=== PATIENT | male | born 1975 | race Caucasian/White ===

== ENCOUNTER 2017-02-06 16:59 | Emergency (ER) | payer SELFPAY ==
[~2017-02-06] VITALS: Ht 170.2 cm; Wt 74.8 kg
[2017-02-06 18:49] LABS: BASO % 0 % (0-3); EOS % 1 % (0-3); HEMATOCRIT 44.2 % (39.0-53.0); HEMOGLOBIN 15.1 g/dL (13.0-17.5); LYMPH # 3.4 x10^3/uL (1.0-4.8); LYMPH % 35 % (24-48); MEAN CORPUSCULAR HEMOGLOBIN 31 pg (25-35); MEAN CORPUSCULAR HGB CONC 34 g/dL (31-37); MEAN CORPUSCULAR VOLUME 90 fL (79-100); MONO % 9 % (0-9); NEUT % 54 % (31-73); PLATELET COUNT 302 x10^3/uL (140-400); RED BLOOD COUNT 4.91 x10^6/uL (4.30-5.70); RED CELL DISTRIBUTION WIDTH 12.8 % (11.5-14.5); WHITE BLOOD COUNT 9.9 x10^3/uL (4.0-11.0)
[2017-02-06 18:50] LABS: BILIRUBIN,URINE NEGATIVE (NEG); GLUCOSE,URINE NEGATIVE (NEG); NITRITE,URINE NEGATIVE (NEG); PH,URINE 7.5; PROTEIN,URINE NEGATIVE (NEG-TRACE)
--- NOTE | 2017-02-06 18:54 | PHYS DOC ---
Past Medical History Past Medical History: Hypertension Past Surgical History: Tonsillectomy Additional Information: 1 ppd Alcohol Use: None Drug Use: None Adult General Chief Complaint Chief Complaint: ABDOMINAL PAIN HPI HPI Patient is a 41 year old male who presents with multiple complaints patient states that he has been having vague but persistent abdominal pain over the past month. Patient states that the pain has been located more so in his left lower quadrant but states that he has noticed pain traveling across his lower abdomen over the past week. Patient states that he has not noticed any blood in his stools and has not had any problems with diarrhea over the past week. Patient states that he did have diarrhea 2 weeks ago which resolved. Patient has had nausea but no vomiting. Patient denies any significant past medical history. Patient states that today he was feeling lightheaded and experiencing generalized weakness which is why he came in today. Patient notes associated increased frequency of urinating. Patient has not taken any medications to help with his symptoms at this time. Review of Systems Review of Systems Constitutional: Lightheadedness, generalized weakness, Denies fever or chills [] Eyes: Denies change in visual acuity, redness, or eye pain [] HENT: Denies nasal congestion or sore throat [] Respiratory: Denies cough or shortness of breath [] Cardiovascular: Denies chest pain or edema [] GI: Abdominal pain, nausea, denies vomiting, bloody stools or diarrhea [] : Increased urinary frequency, Denies dysuria or hematuria [] Musculoskeletal: Denies back pain or joint pain [] Integument: Denies rash or skin lesions [] Neurologic: Denies headache, focal weakness or sensory changes [] Current Medications Current Medications Current Medications Medications (Trade) Dose Ordered Sig/Nafisa Start Time Stop Time Status Last Admin Dose Admin Dicyclomine HCl (Bentyl) 10 mg 1X ONCE 02/06/17 19:00 02/06/17 19:01 DC 02/06/17 18:55 10 MG Famotidine (Pepcid) 20 mg 1X ONCE 02/06/17 19:00 02/06/17 19:01 DC 02/06/17 18:55 20 MG Ondansetron HCl (Zofran) 4 mg 1X ONCE 02/06/17 19:00 02/06/17 19:01 DC 02/06/17 18:55 4 MG Sodium Chloride (Iv Sodium Chloride 0.9% 1000ml Bag) 1,000 ml @ 1,000 mls/hr Q1H 02/06/17 19:00 02/06/17 19:59 DC 02/06/17 18:55 1,000 MLS/HR Allergies Allergies Allergies Coded Allergies Type Severity Reaction Last Updated Verified Penicillins Allergy Intermediate "my father is allergic to it" 02/06/17 Yes Physical Exam Physical Exam Constitutional: Well developed, well nourished, no acute distress, non-toxic appearance. [] HENT: Normocephalic, atraumatic, bilateral external ears normal, oropharynx moist, no oral exudates, nose normal. [] Eyes: PERRLA, EOMI, conjunctiva normal, no discharge. [] Neck: Normal range of motion, no tenderness, supple, no stridor. [] Cardiovascular:Heart rate regular rhythm, no murmur [] Lungs & Thorax: Bilateral breath sounds clear to auscultation [] Abdomen: Bowel sounds normal, soft, no tenderness, no masses, no pulsatile masses. [] Skin: Warm, dry, no erythema, no rash. [] Back: No tenderness, no CVA tenderness. [] Extremities: No tenderness, no cyanosis, no clubbing, ROM intact, no edema. [] Neurologic: Alert and oriented X 3, normal motor function, normal sensory function, no focal deficits noted. [] Current Patient Data Vital Signs Vital Signs Date Time Temp Pulse Resp B/P Pulse Ox O2 Delivery O2 Flow Rate FiO2 02/06/17 19:18 59 19 116/68 98 Room Air 02/06/17 17:12 97.9 97.9 Lab Values Laboratory Tests Test 02/06/17 18:15 White Blood Count 9.9x10^3/uL (4.0-11.0) Red Blood Count 4.91x10^6/uL (4.30-5.70) Hemoglobin 15.1g/dL (13.0-17.5) Hematocrit 44.2% (39.0-53.0) Mean Corpuscular Volume 90fL (79-100) Mean Corpuscular Hemoglobin 31pg (25-35) Mean Corpuscular Hemoglobin Concent 34g/dL (31-37) Red Cell Distribution Width 12.8% (11.5-14.5) Platelet Count 302x10^3/uL (140-400) Neutrophils (%) (Auto) 54% (31-73) Lymphocytes (%) (Auto) 35% (24-48) Monocytes (%) (Auto) 9% (0-9) Eosinophils (%) (Auto) 1% (0-3) Basophils (%) (Auto) 0% (0-3) Neutrophils # (Auto) 5.4x10^3uL (1.8-7.7) Lymphocytes # (Auto) 3.4x10^3/uL (1.0-4.8) Monocytes # (Auto) 0.9x10^3/uL (0.0-1.1) Eosinophils # (Auto) 0.1x10^3/uL (0.0-0.7) Basophils # (Auto) 0.0x10^3/uL (0.0-0.2) Urine Collection Type Unknown Urine Color Yellow Urine Clarity Clear Urine pH 7.5 Urine Specific [place] 1.010 Urine Protein Negativemg/dL (NEG-TRACE) Urine Glucose (UA) Negativemg/dL (NEG) Urine Ketones (Stick) Negativemg/dL (NEG) Urine Blood Negative (NEG) Urine Nitrite Negative (NEG) Urine Bilirubin Negative (NEG) Urine Urobilinogen Dipstick 1.0mg/dL (0.2 mg/dL) Urine Leukocyte Esterase Negative (NEG) Urine RBC 0/HPF (0-2) Urine WBC Occ/HPF (0-4) Urine Squamous Epithelial Cells Few/LPF Urine Bacteria Few/HPF (0-FEW) Sodium Level 135mmol/L (136-145) L Potassium Level 3.6mmol/L (3.5-5.1) Chloride Level 98mmol/L (98-107) Carbon Dioxide Level 28mmol/L (21-32) Anion Gap 9 (6-14) Blood Urea Nitrogen 11mg/dL (8-26) Creatinine 0.9mg/dL (0.7-1.3) Estimated GFR (Cockcroft-Gault) 93.0 BUN/Creatinine Ratio 12 (6-20) Glucose Level 84mg/dL (70-99) Calcium Level 9.2mg/dL (8.5-10.1) Total Bilirubin 0.3mg/dL (0.2-1.0) Aspartate Amino Transferase (AST) 18U/L (15-37) Alanine Aminotransferase (ALT) 33U/L (16-63) Alkaline Phosphatase 56U/L (46-116) Total Protein 7.4g/dL (6.4-8.2) Albumin 4.0g/dL (3.4-5.0) Albumin/Globulin Ratio 1.2 (1.0-1.7) Lipase 246U/L (73-393) Laboratory Tests 02/06/17 18:15 Laboratory Tests 02/06/17 18:15 EKG EKG Interpreted by me: Heart rate 61, sinus rhythm, normal intervals, normal axis, no acute ST/T-wave abnormalities present [] Radiology/Procedures Radiology/Procedures 3 view acute abdominal series interpreted by me: No infiltrate, no effusions, normal cardiac silhouette, no free air under the diaphragm, nonobstructive bowel gas pattern [] Course & Med Decision Making Course & Med Decision Making Pertinent Labs and Imaging studies reviewed. (See chart for details) Patient was given IV fluids, Bentyl, Zofran, and Pepcid. On reevaluation, patient states his symptoms have improved at this time. The patient's emergency department workup is unremarkable for any significant pathology at this time. Due to continued suspicion for possible GI problems, the patient will be referred to Dr. Noble of gastroenterology for follow-up in one to 2 weeks. Advised patient follow-up with his primary doctor in the next 3-5 days and return to the emergency department for any worsening symptoms. Patient voiced understanding and in agreement with treatment plan. Dragon Disclaimer Dragon Disclaimer This electronic medical record was generated, in whole or in part, using a voice recognition dictation system. Departure Departure Impression: Primary Impression: Abdominal pain Additional Impression: Fatigue Disposition: 01 HOME, SELF-CARE Condition: IMPROVED Referrals: NO PCP (PCP) CLARA NOBLE MD Patient Instructions: Abdominal Pain (Nonspecific) Additional Instructions: Follow-up with your primary doctor in 3-5 days and follow-up with Dr. Noble of gastroenterology in 1-2 weeks. Return to the emergency department for any worsening symptoms. Scripts Famotidine (Pepcid)20 Mg [id number] Mg PO BID #30 TAB Prov:MITCH YARBROUGH MD 02/06/17 Dicyclomine Hcl (Bentyl)10 Mg Capsule1 Cap PO TID #90 CAP Ref 0 Prov:MITCH YARBROUGH MD 02/06/17 Ondansetron (Zofran Odt)4 Mg Tab.rapdis1 Tab SL Q8HRS PRN NAUSEA/VOMITING #15 TAB Prov:MITCH YARBROUGH MD 02/06/17 Problem Qualifiers Primary Impression: Abdominal pain Abdominal location: lower abdomen, unspecified Qualified Code: R10.30 - Lower abdominal pain, unspecified Additional Impression: Fatigue Fatigue type: unspecified Qualified Code: R53.83 - Other fatigue MITCH YARBROUGH MD Feb 06, 2017 18:54
[2017-02-06] MEDS ORDERED: ONDANSETRON PF 4 MG/2 ML VIAL. IV ONE (19:00)
[2017-02-06] MEDS ORDERED: IV NORMAL SALINE 1000ML BAG 1,000 ML IV SCH (19:00)
[2017-02-06] MEDS ORDERED: FAMOTIDINE 20 MG/2 ML VIAL IVP ONE (19:00)
[2017-02-06] MEDS ORDERED: DICYCLOMINE 20 MG/2 ML AMPUL. IM ONE (19:00)
[2017-02-06 19:05] LABS: CALCIUM 9.2 mg/dL (8.5-10.1); CREATININE 0.9 mg/dL (0.7-1.3); POTASSIUM 3.6 mmol/L (3.5-5.1)
[2017-02-06 19:10] LABS: ALBUMIN/GLOBULIN RATIO 1.2 (1.0-1.7); TOTAL BILIRUBIN 0.3 mg/dL (0.2-1.0); TOTAL PROTEIN 7.4 g/dL (6.4-8.2)
[2017-02-06 19:14] LABS: BACTERIA,URINE FEW /HPF (0-FEW); RBC,URINE 0 /HPF (0-2); SQUAMOUS EPITHELIAL CELL,UR FEW /LPF; WBC,URINE OCC /HPF (0-4)
[2017-02-06 20:01] VITALS: BP 110/74
[2017-02-06] MEDS ORDERED: FAMO-63 PO (20:26)
[2017-02-06] MEDS ORDERED: ONDA4TAB10 SL (20:26)
[2017-02-06] MEDS ORDERED: DICY10CA53 PO (20:26)
--- NOTE | 2017-02-07 06:43 | EKG ---
[facility] [address] [place] [address] Test Date: 2017-02-06 Test Time: 18:52:12 Pat Name: DONG HERNANDEZ Department: Room: Gender: M [employer]: : 1975 Requested By: MITCH YARBRUOGH Order Number: [id number] Reading MD: Measurements Intervals [place] Rate: 61 P: 51 KS: 214 QRS: 34 QRSD: 100 T: 28 QT: 388 QTc: 396 Interpretive Statements SINUS RHYTHM NO SPECIFIC ECG ABNORMALITIES RI6.01 No previous ECG available for comparison
--- NOTE | 2017-02-07 08:37 | RAD ---
Acute abdomen series with chest, 3 views, 02/06/2017: History: Pain Gas is present in large and small bowel in a nonspecific pattern. No free air is seen in the abdomen. There is no evidence of organomegaly. Calcified splenic granulomata are present. Lower pelvic calcifications are probably phleboliths. The heart size is normal. The lungs are clear. There is no evidence of pleural fluid. IMPRESSION: No acute abdominal abnormality is detected.
== END 2017-02-06 20:40 | disposition home or self-care (01) ==
LOC: ER 16:59
DX: R10.32 Left lower quadrant pain (principal); R53.83 Other fatigue; I10 Essential (primary) hypertension; F17.200 Nicotine dependence, unspecified, uncomplicated; Z88.0 Allergy status to penicillin
CPT/HCPCS: 36415; 74022; 80053; 81001; 83690; 85027; 93005; 96361; 96372; 96374; 96375; 99285; J0500; J2405; J7030; S0028

== ENCOUNTER 2017-02-24 19:35 | Emergency (ER) | payer OTHER ==
[~2017-02-24] VITALS: Ht 170.2 cm; Wt 70.3 kg
[~2017-02-24 19:35] MED LIST: DICY10CA53 PO; FAMO-63 PO; ONDA4TAB10 SL
[2017-02-24] MEDS ORDERED: KETOROLAC TROMETHAMINE 30 MG/ML INJ. IV ONE (20:00)
[2017-02-24] MEDS ORDERED: DEXAMETHASONE SOD PHOS 20 MG/5 ML VIAL. IV ONE (20:00)
[2017-02-24 20:10] LABS: BASO # 0.1 x10^3/uL (0.0-0.2); BASO % 1 % (0-3); EOS % 2 % (0-3); HEMATOCRIT 41.6 % (39.0-53.0); HEMOGLOBIN 14.8 g/dL (13.0-17.5); LYMPH # 3.9 x10^3/uL (1.0-4.8); LYMPH % 34 % (24-48); MEAN CORPUSCULAR HEMOGLOBIN 31 pg (25-35); MEAN CORPUSCULAR HGB CONC 36 g/dL (31-37); MEAN CORPUSCULAR VOLUME 88 fL (79-100); MONO % 7 % (0-9); NEUT % 57 % (31-73); PLATELET COUNT 341 x10^3/uL (140-400); RED BLOOD COUNT 4.73 x10^6/uL (4.30-5.70); RED CELL DISTRIBUTION WIDTH 12.9 % (11.5-14.5); WHITE BLOOD COUNT 11.5 x10^3/uL (4.0-11.0)
[2017-02-24 20:18] LABS: CALCIUM 9.1 mg/dL (8.5-10.1); CREATININE 0.9 mg/dL (0.7-1.3); POTASSIUM 3.5 mmol/L (3.5-5.1)
--- NOTE | 2017-02-24 20:20 | RAD ---
PROCEDURE CT head without intravenous contrast. HISTORY Bilateral facial pain and numbness. TECHNIQUE Axial images are obtained of the head from the skull base through the vertex without IV contrast Exposure: One or more of the following individualized dose reduction techniques were utilized for this examination: 1. Automated exposure control. 2. Adjustment of the mA and/or kV according to patient size. 3. Use of iterative reconstruction technique. COMPARISON None. FINDINGS The ventricles are appropriate in size, shape, and location for the patient's age.No obvious intracranial mass, mass-effect, midline shift, hemorrhage or obvious acute infarction is identified.Basilar cisterns are patent. Bone windows demonstrate no acute calvarial abnormality.The visualized paranasal sinuses appear clear. IMPRESSION No acute intracranial process. Please note that CT can be relatively insensitive to acute ischemic infarction for up to 24 hours after symptom onset. Electronically signed by: Steve Alonso MD (Feb 24, 2017 20:18:29)
[2017-02-24 20:23] LABS: ALBUMIN 4.3 g/dL (3.4-5.0); ALBUMIN/GLOBULIN RATIO 1.3 (1.0-1.7); TOTAL BILIRUBIN 0.4 mg/dL (0.2-1.0); TOTAL PROTEIN 7.5 g/dL (6.4-8.2)
--- NOTE | 2017-02-24 20:30 | PHYS DOC ---
Past Medical History Past Medical History: Hypertension Past Surgical History: Tonsillectomy Alcohol Use: None Drug Use: None Adult General Chief Complaint Chief Complaint: FACE PROBLEM HPI HPI Patient is a 41 year old female presenting to the emergency department for nonspecific symptoms of facial pain and facial paresthesias generalized not feeling right. Patient's pain and paresthesias is bilateral and has been going on for several days. He says he feels a pressure in his head and just feels that he is off. He denies any pain other than his face. He says that he has some problems focusing on objects that are far in the distance but otherwise denies any other vision problems. He denies any difficulty speaking or ambulating and no unilateral weakness numbness or tingling. He also denies any chest pain shortness of breath diaphoresis nausea vomiting. He is in no obvious distress with normal vital signs. Review of Systems Review of Systems Constitutional: Denies fever or chills [] Eyes: Denies change in visual acuity, redness, or eye pain [] HENT: + nasal congestion. No sore throat [] Respiratory: Denies cough or shortness of breath [] Cardiovascular: No CP GI: Denies abdominal pain, nausea, vomiting, bloody stools or diarrhea [] : Denies dysuria or hematuria [] Musculoskeletal: Denies back pain or joint pain [] Integument: Denies rash or skin lesions [] Neurologic: Denies headache, focal weakness. + sensory changes [] Current Medications Current Medications Current Medications Medications (Trade) Dose Ordered Sig/Nafisa Start Time Stop Time Status Last Admin Dose Admin Dexamethasone Sodium Phosphate (Decadron) 10 mg 1X ONCE 02/24/17 20:00 02/24/17 20:01 DC 02/24/17 20:01 10 MG Ketorolac Tromethamine (Toradol) 30 mg 1X ONCE 02/24/17 20:00 02/24/17 20:01 DC 02/24/17 19:59 30 MG Allergies Allergies Allergies Coded Allergies Type Severity Reaction Last Updated Verified Penicillins Allergy Intermediate "my father is allergic to it" 02/06/17 Yes Physical Exam Physical Exam Constitutional: Well developed, well nourished, no acute distress, non-toxic appearance. [] HENT: Face with tenderness to palpation of his maxilla and TMJ area. Eyes: PERRLA, EOMI, conjunctiva normal, no discharge. [] Neck: Normal range of motion, no tenderness, supple, no stridor. [] Cardiovascular:Heart rate regular rhythm, no murmur [] Lungs & Thorax: Bilateral breath sounds clear to auscultation [] Abdomen: Bowel sounds normal, soft, no tenderness, no masses, no pulsatile masses. [] Skin: Warm, dry, no erythema, no rash. [] Back: No tenderness, no CVA tenderness. [] Extremities: No tenderness, no cyanosis, no clubbing, ROM intact, no edema. [] Neurologic: Alert and oriented X 3, normal motor function. Cranial nerves II through XII intact. Current Patient Data Vital Signs Vital Signs Date Time Temp Pulse Resp B/P Pulse Ox O2 Delivery O2 Flow Rate FiO2 02/24/17 19:44 97.8 74 18 138/80 100 Room Air 97.8 Lab Values Laboratory Tests Test 02/24/17 19:51 White Blood Count 11.5x10^3/uL (4.0-11.0) H Red Blood Count 4.73x10^6/uL (4.30-5.70) Hemoglobin 14.8g/dL (13.0-17.5) Hematocrit 41.6% (39.0-53.0) Mean Corpuscular Volume 88fL (79-100) Mean Corpuscular Hemoglobin 31pg (25-35) Mean Corpuscular Hemoglobin Concent 36g/dL (31-37) Red Cell Distribution Width 12.9% (11.5-14.5) Platelet Count 341x10^3/uL (140-400) Neutrophils (%) (Auto) 57% (31-73) Lymphocytes (%) (Auto) 34% (24-48) Monocytes (%) (Auto) 7% (0-9) Eosinophils (%) (Auto) 2% (0-3) Basophils (%) (Auto) 1% (0-3) Neutrophils # (Auto) 6.5x10^3uL (1.8-7.7) Lymphocytes # (Auto) 3.9x10^3/uL (1.0-4.8) Monocytes # (Auto) 0.8x10^3/uL (0.0-1.1) Eosinophils # (Auto) 0.2x10^3/uL (0.0-0.7) Basophils # (Auto) 0.1x10^3/uL (0.0-0.2) Sodium Level 135mmol/L (136-145) L Potassium Level 3.5mmol/L (3.5-5.1) Chloride Level 98mmol/L (98-107) Carbon Dioxide Level 29mmol/L (21-32) Anion Gap 8 (6-14) Blood Urea Nitrogen 12mg/dL (8-26) Creatinine 0.9mg/dL (0.7-1.3) Estimated GFR (Cockcroft-Gault) 93.0 BUN/Creatinine Ratio 13 (6-20) Glucose Level 95mg/dL (70-99) Calcium Level 9.1mg/dL (8.5-10.1) Total Bilirubin 0.4mg/dL (0.2-1.0) Aspartate Amino Transferase (AST) 22U/L (15-37) Alanine Aminotransferase (ALT) 43U/L (16-63) Alkaline Phosphatase 57U/L (46-116) Total Protein 7.5g/dL (6.4-8.2) Albumin 4.3g/dL (3.4-5.0) Albumin/Globulin Ratio 1.3 (1.0-1.7) Laboratory Tests 02/24/17 19:51 Laboratory Tests 02/24/17 19:51 EKG EKG [] Radiology/Procedures Radiology/Procedures PROCEDURE CT head without intravenous contrast. HISTORY Bilateral facial pain and numbness. TECHNIQUE Axial images are obtained of the head from the skull base through the vertex without IV contrast Exposure: One or more of the following individualized dose reduction techniques were utilized for this examination: 1. Automated exposure control. 2. Adjustment of the mA and/or kV according to patient size. 3. Use of iterative reconstruction technique. COMPARISON None. FINDINGS The ventricles are appropriate in size, shape, and location for the patient's age.No obvious intracranial mass, mass-effect, midline shift, hemorrhage or obvious acute infarction is identified.Basilar cisterns are patent. Bone windows demonstrate no acute calvarial abnormality.The visualized paranasal sinuses appear clear. IMPRESSION No acute intracranial process. Please note that CT can be relatively insensitive to acute ischemic infarction for up to 24 hours after symptom onset. Electronically signed by: Steve Alonso MD (Feb 24, 2017 20:18:29) DICTATED and SIGNED BY: STEVE ALONSO MD DATE: 02/24/17 2018 Course & Med Decision Making Course & Med Decision Making Patient with very nonspecific complaints of paresthesias and pain that is bilateral. I do not think that this is a stroke but it may be some sinus congestion and possibly a sinusitis. Patient's ABCD squared score is equal to 2. I feel the patient can be safely discharged to follow with neurology. He has some leukocytosis he'll be discharged on Levaquin and be told to take NSAIDs and decongestants to see if this helps. Patient aware and agreeable with plan for discharge and verbalized understanding of the need for short-term follow-up and strict ER return precautions discussed worsening pain fevers vomiting or vaginal concerns. Dragon Disclaimer Dragon Disclaimer This electronic medical record was generated, in whole or in part, using a voice recognition dictation system. Departure Departure Impression: Primary Impression: Facial paresthesia Additional Impressions: Facial pain Leukocytosis Disposition: HOME, SELF-CARE Condition: GOOD Referrals: NO PCP (PCP) RICK HAYNES MD Patient Instructions: Sinusitis Additional Instructions: TAKE 400MG OF IBUPROFEN EVERY 6 HOURS AND THE NORCO FOR BREAKTHROUGH PAIN. USE OTC BENADRYL AND NASONEX TO HELP DECONGEST YOU. FOLLOW WITH YOUR PRIMARY CARE PROVIDER AND/OR NEUROLOGIST TO ENSURE IMPROVEMENT. THANK YOU! Scripts Azithromycin (Zithromax Packet)1 Gm Packet1 Packet PO ONCE #1 PACKET Prov:KARYN MANZO DO 02/24/17 Hydrocodone/Apap 5-325 ([place] 5-325 Tablet)1 Each Tablet1 Tab PO PRN Q6HRS PRN PAIN #10 TAB Prov:KARYN MANZO DO 02/24/17 Problem Qualifiers KARYN MANZO DO Feb 24, 2017 20:30
[2017-02-24] MEDS ORDERED: HYDR-971 PO (20:37)
[2017-02-24] MEDS ORDERED: AZIT1PAC PO (20:37)
[2017-02-24 20:45] VITALS: BP 109/73
== END 2017-02-24 20:45 | disposition home or self-care (01) ==
LOC: ER 19:35
DX: R20.8 Other disturbances of skin sensation (principal); R51 Headache; D72.829 Elevated white blood cell count, unspecified; I10 Essential (primary) hypertension; Z88.0 Allergy status to penicillin
CPT/HCPCS: 36415; 70450; 80053; 85027; 96374; 96375; 99285; J1100; J1885

== ENCOUNTER 2017-06-22 09:26 | Emergency (ER) | payer OTHER ==
[~2017-06-22] VITALS: Ht 170.2 cm; Wt 70.3 kg
[~2017-06-22 09:26] MED LIST changes: +AZIT1PAC PO; +HYDR-971 PO
[2017-06-22] MEDS ORDERED: GADOBUTROL 7.5 MMOL/7.5 ML VIAL IV ONE (10:45)
[2017-06-22 11:03] LABS: BASO % 1 % (0-3); EOS % 2 % (0-3); HEMATOCRIT 43.6 % (39.0-53.0); HEMOGLOBIN 15.3 g/dL (13.0-17.5); LYMPH # 2.4 x10^3/uL (1.0-4.8); LYMPH % 32 % (24-48); MEAN CORPUSCULAR HEMOGLOBIN 31 pg (25-35); MEAN CORPUSCULAR HGB CONC 35 g/dL (31-37); MEAN CORPUSCULAR VOLUME 90 fL (79-100); MONO % 8 % (0-9); NEUT % 58 % (31-73); PLATELET COUNT 266 x10^3/uL (140-400); RED BLOOD COUNT 4.87 x10^6/uL (4.30-5.70); RED CELL DISTRIBUTION WIDTH 12.7 % (11.5-14.5); WHITE BLOOD COUNT 7.5 x10^3/uL (4.0-11.0)
[2017-06-22 11:18] LABS: CALCIUM 9.5 mg/dL (8.5-10.1); CREATININE 0.8 mg/dL (0.7-1.3); GFR 106.5
[2017-06-22 11:24] LABS: ALBUMIN 3.9 g/dL (3.4-5.0); ALBUMIN/GLOBULIN RATIO 1.2 (1.0-1.7); TOTAL BILIRUBIN 0.3 mg/dL (0.2-1.0); TOTAL PROTEIN 7.1 g/dL (6.4-8.2)
--- NOTE | 2017-06-22 11:34 | PHYS DOC ---
Past Medical History Past Medical History: Hypertension Past Surgical History: Tonsillectomy Alcohol Use: None Drug Use: None Adult General Chief Complaint Chief Complaint: HEADACHE HPI HPI Patient is a 41 year old female presents to the emergency department stating that he was seen here at the end of January for head discomfort. He states that the had discomfort has become worse in which she has pressure any time he leans forward and sits up. He states that he has sharp pains going up the back side of his head. He states that he has had increased depth perception problems. He states he has left ear discomfort that goes down into his neck. He continues to state that he's had left lymph nodes in the axilla that of been swollen. He also states the left Side of his chest appears to be slightly swollen as well. Patient denies any shortness of air difficulty breathing. He does state he has a neurology appointment however that is not until August. Patientt denies any falls injuries or trauma. Review of Systems Review of Systems Constitutional: Denies fever or chills [] Eyes: Denies change in visual acuity, redness, or eye pain. Change in depth perception HENT: Denies nasal congestion or sore throat [] Respiratory: Denies cough or shortness of breath [] Cardiovascular: No additional information not addressed in HPI [] GI: Denies abdominal pain, nausea, vomiting, bloody stools or diarrhea [] : Denies dysuria or hematuria [] Musculoskeletal: Denies back pain or joint pain [] Integument: Denies rash or skin lesions [] Neurologic: headache, denies focal weakness or sensory changes [] Endocrine: Denies polyuria or polydipsia [] Current Medications Current Medications Current Medications Medications (Trade) Dose Ordered Sig/Nafisa Start Time Stop Time Status Last Admin Dose Admin Gadobutrol (Gadavist) 7.5 mmol 1X ONCE 06/22/17 10:45 06/22/17 10:46 DC 06/22/17 10:58 7.5 MMOL Allergies Allergies Allergies Coded Allergies Type Severity Reaction Last Updated Verified Penicillins Allergy Intermediate "my father is allergic to it" 02/06/17 Yes Physical Exam Physical Exam Constitutional: Well developed, well nourished, no acute distress, non-toxic appearance. [] HENT: Normocephalic, atraumatic, bilateral external ears normal, oropharynx moist, no oral exudates, nose normal. Bilateral TM normal, throat without redness, erythema or exudate. No anterior cervical adenopathy noted. Eyes: PERRLA, EOMI, conjunctiva normal, no discharge. [] Neck: Normal range of motion, no tenderness, supple, no stridor. [] Cardiovascular:Heart rate regular rhythm, no murmur [] Lungs & Thorax: Bilateral breath sounds clear to auscultation [] Skin: Warm, dry, no erythema, no rash. Left axilla lymph node tenderness noted. Back: No tenderness Extremities: No tenderness, no cyanosis, no clubbing, ROM intact, no edema. [] Neurologic: Alert and oriented X 3, normal motor function, normal sensory function, no focal deficits noted. [] Psychologic: Affect normal, judgement normal, mood normal. [] Current Patient Data Vital Signs Vital Signs Date Time Temp Pulse Resp B/P (MAP) Pulse Ox O2 Delivery O2 Flow Rate FiO2 06/22/17 09:48 98.1 80 16 119/80 (93) 99 Room Air 98.1 Lab Values Laboratory Tests Test 06/22/17 10:52 White Blood Count 7.5 x10^3/uL (4.0-11.0) Red Blood Count 4.87 x10^6/uL (4.30-5.70) Hemoglobin 15.3 g/dL (13.0-17.5) Hematocrit 43.6 % (39.0-53.0) Mean Corpuscular Volume 90 fL (79-100) Mean Corpuscular Hemoglobin 31 pg (25-35) Mean Corpuscular Hemoglobin Concent 35 g/dL (31-37) Red Cell Distribution Width 12.7 % (11.5-14.5) Platelet Count 266 x10^3/uL (140-400) Neutrophils (%) (Auto) 58 % (31-73) Lymphocytes (%) (Auto) 32 % (24-48) Monocytes (%) (Auto) 8 % (0-9) Eosinophils (%) (Auto) 2 % (0-3) Basophils (%) (Auto) 1 % (0-3) Neutrophils # (Auto) 4.4 x10^3uL (1.8-7.7) Lymphocytes # (Auto) 2.4 x10^3/uL (1.0-4.8) Monocytes # (Auto) 0.6 x10^3/uL (0.0-1.1) Eosinophils # (Auto) 0.1 x10^3/uL (0.0-0.7) Basophils # (Auto) 0.0 x10^3/uL (0.0-0.2) Sodium Level 140 mmol/L (136-145) Potassium Level 4.0 mmol/L (3.5-5.1) Chloride Level 102 mmol/L (98-107) Carbon Dioxide Level 30 mmol/L (21-32) Anion Gap 8 (6-14) Blood Urea Nitrogen 9 mg/dL (8-26) Creatinine 0.8 mg/dL (0.7-1.3) Estimated GFR (Cockcroft-Gault) 106.5 BUN/Creatinine Ratio 11 (6-20) Glucose Level 93 mg/dL (70-99) Calcium Level 9.5 mg/dL (8.5-10.1) Total Bilirubin 0.3 mg/dL (0.2-1.0) Aspartate Amino Transferase (AST) 24 U/L (15-37) Alanine Aminotransferase (ALT) 57 U/L (16-63) Alkaline Phosphatase 55 U/L (46-116) Total Protein 7.1 g/dL (6.4-8.2) Albumin 3.9 g/dL (3.4-5.0) Albumin/Globulin Ratio 1.2 (1.0-1.7) Laboratory Tests 06/22/17 10:52 Laboratory Tests 06/22/17 10:52 EKG EKG [] Radiology/Procedures Radiology/Procedures [] Course & Med Decision Making Course & Med Decision Making Pertinent Labs and Imaging studies reviewed. (See chart for details) Patient CBC, CMP and MRI is normal. Patient will be placed on doxy for symptoms of sinusitis, also recommended sudafed for the head pressure. Patient was provided with lab and MRI results. Patient will be recommended to keep the neurology appointment that he has scheduled. Signs and symptoms to return to the emergency department has been provided. Patient will be discharged home in stable condition. All questions and concerns have been answered at patients bedside. [] Dragon Disclaimer Dragon Disclaimer This electronic medical record was generated, in whole or in part, using a voice recognition dictation system. Departure Departure Impression: Primary Impression: Pressure in head Disposition: HOME, SELF-CARE Condition: STABLE Referrals: KARYN TOLBERT (PCP) Patient Instructions: General Headache Without Cause, [id number] Additional Instructions: Activity as tolerated Medication as prescribed Sudafed as directed by manufacture over the counter Drink plenty of fluids Followup with primary care provider in 5-7 days Return to emergency department as needed for signs and symptoms that become worse. Scripts Doxycycline Hyclate (DOXYCYCLINE HYCLATE) 100 Mg Capsule 1 CAP PO BID, #20 CAP Prov: SANTIAGO SIMON APRN 06/22/17 SANTIAGO SIMON APRN Jun 22, 2017 11:34
--- NOTE | 2017-06-22 11:40 | RAD ---
MRI Brain with and without contrast History:WORSENING INTRACRANIAL PRESSURE CAUSING HEADACHES X 4 DAYS Technique: Multiplanar, multi sequential pre and postcontrast MR imaging was performed of the brain. Contrast: 7.5 cc Gadavist Comparison: None other than CT head February 24, 2017 Findings: There is some motion degradation. There is no evidence of recent infarct or cytotoxic edema. The ventricles, sulci, and cisterns are within normal limits in size and configuration. There is no significant midline shift, intraaxial mass effect, or focal abnormal extra-axial fluid collection. Allowing for motion, there is no significant signal abnormality of the brain parenchyma. There is no nodular parenchymal or leptomeningeal enhancement. There is preservation of the major intracranial flow-voids at the skull base. The cerebellar tonsils are normal in location. There is no significant abnormality of the pineal gland or pituitary gland. Paranasal sinuses are overall aerated. The mastoid air cells are aerated. There is preserved marrow signal of the clivus. There is 6 mm cyst along the left nasopharyngeal mucosal surface. Impression: 1. There is no significant intracranial abnormality. Electronically signed by: Agustín Garcia MD (06/22/2017 11:36 AM) [id number]
[2017-06-22 12:00] VITALS: BP 102/68
[2017-06-22] MEDS ORDERED: DOXY100C2 PO (12:00)
== END 2017-06-22 12:19 | disposition home or self-care (01) ==
LOC: ER 09:26
DX: R51 Headache (principal); I10 Essential (primary) hypertension; E78.00 Pure hypercholesterolemia, unspecified
CPT/HCPCS: 36415; 70553; 80053; 85025; 96374; 99285; A9585